=== PATIENT | male | born 1935 | race Caucasian/White ===

== ENCOUNTER 2020-01-01 11:33 | Emergency (ER) | payer MEDICARE, SELFPAY ==
--- NOTE | ~2020-01-01 | XR_ITS ---
XR hand RT min 3V DATE: 01/01/2020 12:57 INDICATION: Fall. Thumb pain. TECHNIQUE: 3 views COMPARISON: None FINDINGS: There is severe osteoarthritic change including severe joint space narrowing and spurring a t the first carpometacarpal joint. There is osteoarthritic change at the interphalangeal joints. No fracture, dislocation, periosteal reaction or bone destruction is detected. Arterial calcification s are noted. 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 IMPRESSION: Polyarticular osteoarthritis, particularly severe at the first carp al metacarpal joint No fracture or dislocation is detected
--- NOTE | ~2020-01-01 | CT_ITS ---
EXAMINATION: CT brain wo con DATE: 01/01/2020 12:54 INDICATION: Fall with head injury TECHNIQUE: Computed tomography (CT) of the head was performed without intravenous contrast. Sagittal and coronal reconstructions were performed. The mA was adjusted according to patient size. Iterative reconstruction technique was employed. The dose-length product was 605.33 mGy-cm. COMPARISON: head CT dated 08/07/2018 FINDINGS: No fracture. No acute intracranial hemorrhage, acute infarction or abnormal extra axial fluid collect ion. There is mild to moderate scattered white matter hypoattenuation consistent with chronic small v essel ischemic disease. Symmetric prominence of the sulci consistent with mild age-appropriate diffu se cerebral volume loss. Ventricles are normal and symmetric. No mass/mass effect. Symmetric dystrop hic calcifications at the bilateral basal ganglia. Intracranial calcified cerebral atherosclerosis is noted. 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 Changes of bilateral intraocular lens replacement. The orbits and mastoid air cells are normal. Layering low-attenuation fluid in the right maxillary sinus which can be seen with acute sinusitis. IMPRESSION: 1. No fracture or acute intracranial process. 2. Age-related changes including mild diffuse on loss and mild to moderate scattered white matter hyp oattenuation consistent with chronic small vessel ischemic disease. 3. Small amount of layering fluid in the right maxillary sinus. Correlate clinically for acute sinusi tis. Reviewed, dictated and finalized at location A. IMPRESSION: 1. No fracture or acute intracranial process. 2. Age-related changes including mild diffuse on loss and mild to moderate scat tered white matter hypoattenuation consistent with chronic small vessel ischemi c disease. 3. Small amount of layering fluid in the right maxillary sinus. Correlate clini earl for acute sinusitis.
--- NOTE | ~2020-01-01 | XR_ITS ---
XR elbow RT 2V DATE: 01/01/2020 12:57 INDICATION: Fall. Right elbow injury, pain TECHNIQUE: AP and lateral views COMPARISON: None FINDINGS: No fracture or dislocation or joint effusion. No periosteal reaction or bone destruction. J oint spaces are preserved. IMPRESSION: Negative Reviewed, dictated and finalized at location B. IMPRESSION: Negative
[2020-01-01 11:40] VITALS: BP 125/78; PULSE 81; RESP 18; TEMP 36.2; O2SAT 99
--- NOTE | 2020-01-01 12:34 | ED.FALL ---
HPI - Fall General Chief Complaint: Fall Stated Complaint: LACERATION Time Seen by Provider: 01/01/20 12:26 History of Present Illness HPI Narrative: Patient presents with his for falling in the garage today. He tripped and fell onto his right hand injuring his right thumb his right elbow and hit his face on the concrete with bleeding. He said he had no loss of consciousness. The pain is 6 out of 10 on the right thumb and 4 out of 10 on the right elbow. The right elbow pain increases with movement. He has an abrasion and a shallow laceration on his face bleeding is stopped. Both he and his forgot that he was on Coumadin when asked initially but then remembered because his INR was drawn today. He denies headache visual changes or weakness. MD complaint: fall Onset (ago): hour(s) Fall from: standing Fall witnessed: no Place fall occurred: home Loss of consciousness: none Prolonged down time: no Symptoms prior to fall: none Context: tripped/slipped Location of injury: head Location of injury - extremities: Right: elbow and hand Severity: moderate Related Data Home Medications Medication Instructions Recorded Confirmed acetaminophen 325 mg capsule 325 mg PO Q6H PRN 05/10/19 12/15/19 fexofenadine-pseudoephedrine ER 1 tablet PO DAILY 05/10/19 12/15/19 180 mg-240 mg tablet,ext.release 24 hr omega-3 fatty acids 1,000 mg 1,000 mg PO DAILY 05/10/19 12/15/19 capsule cyanocobalamin (vitamin B-12) 1,000 mcg PO DAILY 12/15/19 12/15/19 1,000 mcg capsule folic acid 1 mg tablet 1 mg PO DAILY 12/15/19 12/15/19 warfarin 4 mg tablet See Rx Instructions PO .COMPLEX 12/15/19 12/15/19 Allergies Allergy/AdvReac Type Severity Reaction Status Date / Time No Known Allergies Allergy Verified 01/01/20 12:06 Review of Systems Review of Systems: Narrative: CONSTITUTIONAL: Denies fever, chills, or sweats. EYES: Denies visual changes, redness, or discharge. ENT: Denies rhinorrhea, congestion, sore throat, or otalgia. CARDIOVASCULAR: Denies chest pain, palpitations, or edema. RESPIRATORY: Denies cough or dyspnea. GASTROINTESTINAL: Denies abdominal pain, nausea, vomiting, or diarrhea. GENITOURINARY: Denies dysuria or hematuria. SKIN: Denies rash or itching. MUSCULOSKELETAL: Denies back pain, but has right elbow and right thumb pain. NEUROLOGIC: Denies headache, numbness, or weakness. PSYCHIATRIC: Denies anxiety or depression. [facility] Past Medical History Medical History Chronic anticoagulation Chronic low back pain Social History Social History Smoking status: Former smoker Smoking end date: 06/28/79 Alcohol intake: never Gender identity (if verbalized by the patient): Male Exam Narrative: Exam Narrative: GENERAL: Well-appearing, well-nourished, and in no acute distress. Shallow laceration above the right eyebrow. Skin tear on the right cheek. Neither currently bleeding. HEAD: Normocephalic, atraumatic. EYES: PERRLA and EOMI. ENT: Nares clear, no rhinorrhea or epistaxis. Mucous membranes moist. NECK: Supple. CHEST: Clear to auscultation. No respiratory distress. HEART: Regular rate and rhythm. No murmur heard. Normal peripheral pulses. ABDOMEN: Soft, nontender, nondistended, normal active bowel sounds. EXTREMITIES: Swelling and tenderness in the right elbow and decreased range of motion. Swelling and tenderness on the thenar prominence of the right hand. SKIN: Warm, dry, no rash. NEURO: No focal deficits. Alert and oriented x3. PSYCH: Normal mood and affect. Very charming Const: General: no acute distress and alert Orientation/consciousness: patient oriented x3 Course Reevaluation(s) Reevaluation #1: Went in to check on the patient. He is resting comfortably. His face is still not bleeding. I told him that he has no fractures. He declines pain medication. He is ready to go. Date: 01/01/20 Time: 1
[2020-01-01] MEDS: TETANUS,DIPHTHERIA,AC PERTUSSIS ADULT (0.5 ML) BOOSTRIX IM (12:42)
[2020-01-01 14:17] VITALS: BP 122/86; PULSE 72; RESP 18; O2SAT 100
== END 2020-01-01 14:18 | disposition home or self-care (01) ==
PROVIDERS: Emergency Provider Emergency Medicine; PCP Internal Medicine
DX: S01.411A Laceration without foreign body of right cheek and temporomandibular area, initial encounter (principal); S01.111A Laceration without foreign body of right eyelid and periocular area, initial encounter; S59.901A Unspecified injury of right elbow, initial encounter; S69.91XA Unspecified injury of right wrist, hand and finger(s), initial encounter; Z23 Encounter for immunization; Z79.01 Long term (current) use of anticoagulants; W01.0XXA Fall on same level from slipping, tripping and stumbling without subsequent striking against object, initial encounter
CPT/HCPCS: 12013; 70450; 73070; 73130; 90471; 90715; 99284

== ENCOUNTER 2020-04-20 09:15 | Emergency (ER) | payer MEDICARE, SELFPAY ==
[2020-04-20 09:22] VITALS: BP 130/84; PULSE 97; RESP 16; TEMP 36.8; O2SAT 98
[2020-04-20] MEDS: LIDOCAINE HCL 1% LOCAL INJ 20 ML VIAL (11:30)
--- NOTE | 2020-04-20 11:31 | ED.GENADULT ---
HPI - General Adult General Chief complaint: Unspecified Stated complaint: GOT A HEMMROID, IT HAS THOMBOSED. Time Seen by Provider: 04/20/20 10:05 Source: patient and family Mode of arrival: ambulatory Limitations: no limitations History of Present Illness HPI narrative: Patient is a 84-year-old male who presents with several days duration of red tender swollen area in the perirectal region denies similar occurrence pain is constant worse with palpation denies fever chills nausea vomiting or immunocompromise presents per private vehicle has not taken anything for his symptoms has not been seen for this complaint Related Data Home Medications Medication Instructions Recorded Confirmed acetaminophen 325 mg capsule 325 mg PO Q6H PRN 05/10/19 04/05/20 fexofenadine-pseudoephedrine ER 1 tablet PO DAILY 05/10/19 04/05/20 180 mg-240 mg tablet,ext.release 24 hr omega-3 fatty acids 1,000 mg 1,000 mg PO DAILY 05/10/19 04/05/20 capsule cyanocobalamin (vitamin B-12) 1,000 mcg PO DAILY 12/15/19 04/05/20 1,000 mcg capsule folic acid 1 mg tablet 1 mg PO DAILY 12/15/19 04/05/20 warfarin 4 mg tablet See Rx Instructions PO .COMPLEX 12/15/19 04/05/20 Allergies Allergy/AdvReac Type Severity Reaction Status Date / Time No Known Allergies Allergy Verified 04/20/20 09:22 Review of Systems Review of Systems: All systems reviewed & are unremarkable except as noted in HPI and below PMFSH Past Medical History Medical History (Updated 04/20/20 @ 11:58 by Jd Kline PA-C) Chronic anticoagulation Chronic low back pain Family History Family History Father Carcinoma of colon Acute myocardial infarction Mother Family history of malignant neoplasm of breast in first degree relative Social History Social History Smoking status: Former smoker Smoking end date: 06/28/79 Alcohol intake: never Gender identity (if verbalized by the patient): Male Exam Narrative: Exam Narrative: GENERAL: Well-appearing, well-nourished, and in no acute distress. HEAD: Normocephalic, atraumatic. EYES: PERRLA and EOMI. ENT: Nares clear, no rhinorrhea or epistaxis. Mucous membranes moist. CHEST: Clear to auscultation. No respiratory distress. No wheezes rales or rhonchi HEART: Regular rate and rhythm. No murmur heard. Normal peripheral pulses. ABDOMEN: Soft, nontender, nondistended EXTREMITIES: Normal range of motion. No edema. SKIN: Warm, dry, no rash. 2 cm red tender swollen area in between the scrotum and anoderm does not involve the scrotum or the anoderm. Lesion is fluctuant NEURO: No focal deficits. Alert and oriented x3. PSYCH: Normal mood and affect. Course Course Emergency Course: Patient in the room at this time had I&D of the abscess resting comfortably aware of case findings treatment plan diagnosis agreeing to follow with primary care on Wednesday for reevaluation Consultations Consultation #1: Discussed case with primary care on-call who recommends that the patient can follow in clinic Date: 04/20/20 Time: 11:56 Vital Signs Vital signs: Vital Signs Temperature 98.2 F 04/20/20 09:22 Pulse Rate 97 04/20/20 09:22 Respiratory Rate 16 04/20/20 09:22 Blood Pressure 130/84 04/20/20 09:22 Pulse Oximetry 98 04/20/20 09:22 Temperature 98.2 F 04/20/20 09:22 Pulse Rate 97 04/20/20 09:22 Respiratory Rate 16 04/20/20 09:22 Blood Pressure 130/84 04/20/20 09:22 Pulse Oximetry 98 04/20/20 09:22 Procedures Abscess I/D mega-rectal: Date of Incision: 04/20/20 Time of Incision: 11:57 Local Anesthetic: lidocaine 1% Technique: incised with #11 blade Irrigation: No Packing used?: iodoform I&D Results: Pus Complications: pain Medical Decision Making MDM Narrative Medical decision making narrative: Patient w
[2020-04-20 11:57] VITALS: BP 136/84; PULSE 90; RESP 16; O2SAT 98
[2020-04-20 12:06] LABS: INR 2.6; Prothrombin Time 27.7 Seconds (11.1-14.7)
[2020-04-20 12:24] VITALS: BP 125/73; PULSE 72; RESP 18; TEMP 36.5; O2SAT 97
== END 2020-04-20 12:27 | disposition home or self-care (01) ==
PROVIDERS: Emergency Medicine Emergency Medical Services; Emergency Provider Emergency Medicine; PCP Internal Medicine
DX: K61.1 Rectal abscess (principal); Z79.01 Long term (current) use of anticoagulants; Z87.891 Personal history of nicotine dependence
CPT/HCPCS: 36415; 46040; 85610; 99283

== ENCOUNTER → 2020-05-09 10:52 | Outpatient (CLI) | payer MEDICARE, SELFPAY ==
--- NOTE | ~2020-05-09 | XR_ITS ---
EXAMINATION: XR lumbar spine 2-3V DATE: 05/09/2020 11:15 INDICATION: Lumbar spinal stenosis. TECHNIQUE: 3 views of lumbar spine were obtained. COMPARISON: CT abdomen and pelvis 09/16/2013 FINDINGS: There is 27 degrees dextroscoliosis of lumbar spine. There is chronic degenerative height l oss of L3 vertebral body on the left. There is mildly decreased disc height at L1-L2 and severely dec reased disc height from L2-L3 through L5-S1. IMPRESSION: 1. Severe lumbar spondylosis, stable from 09/16/2013. 2. Lumbar dextroscoliosis. Reviewed, dictated and finalized at location B. ONAL OFFICE COORDINATOR
--- NOTE | ~2020-05-09 | XR_ITS ---
EXAMINATION: XR thoracic spine 3V EXAM DATE: 05/09/2020 11:15 INDICATION: M54.9 - Dorsalgia, unspecified. TECHNIQUE: Frontal and lateral projections of the thoracic spine as well as lateral swimmers projecti on of the upper thoracic spine for interpretation. Comparison is made to prior examination from 2012. FINDINGS: Mild to moderate lower thoracic levoscoliosis. Mild to moderate sized right lateral bridgi ng endplate osteophytes. Mild to moderate mid and lower thoracic disc disease. No endplate erosive ch maria c. Paraspinal soft tissue is unremarkable. Compared to prior examination, progression in scoliosis and spondylosis. IMPRESSION: 1. Mild to moderate thoracic scoliosis, spondylosis. Reviewed, dictated and finalized at location A. OAT CAPTAIN
== END ==
PROVIDERS: PCP Internal Medicine; Visit Provider Internal Medicine
DX: M48.061 Spinal stenosis, lumbar region without neurogenic claudication (principal); M41.9 Scoliosis, unspecified; M47.894 Other spondylosis, thoracic region; M47.896 Other spondylosis, lumbar region
CPT/HCPCS: 72072; 72100

== ENCOUNTER 2020-10-17 11:20 | Inpatient (IN) | payer MEDICARE, SELFPAY ==
[2020-10-17] VITALS (17 sets, daily range): BP systolic 158–179; BP diastolic 89–109; PULSE 85–106; RESP 12–26; TEMP 35.9; O2SAT 97–100
--- NOTE | ~2020-10-17 | XR_ITS ---
EXAMINATION: XR chest 1V portable DATE: 10/17/2020 12:20 INDICATION: Unresponsive. TECHNIQUE: A single frontal view of the chest was obtained. COMPARISON: Chest single view 11/01/2017, chest CT 10/30/2016 FINDINGS: There are mild airspace opacities in right lower lung zone and left mid and lower lung zone s. Calcified right lung nodules and calcified right hilar and mediastinal lymph nodes are consistent with old granulomatous disease. No pleural effusion or pneumothorax. The heart size is normal. IMPRESSION: 1. Mild airspace opacities in right lower lung zone and left mid and lower lung zones, consistent wit h atelectasis versus pneumonia. Reviewed, dictated and finalized at location B. IMPRESSION: 1. Mild airspace opacities in right lower lung zone and left mid and lower lung zones, consistent with atelectasis versus pneumonia.
--- NOTE | ~2020-10-17 | CT_ITS ---
EXAMINATION: CT brain wo con DATE: 10/17/2020 11:50 INDICATION: Unresponsive. TECHNIQUE: Computed tomography (CT) of the head was performed without intravenous contrast. Sagittal and coronal reconstructions were performed. Automated exposure control and iterative reconstruction t echnique were employed. The dose-length product was 681.00 mGy-cm. COMPARISON: head CT dated 01/01/2020 FINDINGS: Large left frontal intraparenchymal hematoma measuring 6.0 x 5.8 x 3.8 cm with surrounding vasogenic edema. There is intraventricular extension of hemorrhage into both the left and right lateral ventric les, the third and fourth ventricles with small amount of blood extending through the bilateral joanna britton of [place]. The ventricles are mildly enlarged relative to the prior study suggesting secondary e ntrapment with mild hydrocephalus. There is subfalcine herniation with 12 mm left right midline shift at the level of the anterior interventricular septum. No underlying mass identified. There is modera te scattered white matter hypoattenuation consistent with chronic small vessel ischemic disease. No acute intracranial ischemic infarction or other abnormal extra axial fluid collection. 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 Changes of bi lateral intraocular lens replacement. The orbits and mastoid air cells are normal. Small mucous reten tion cyst in the right maxillary sinus. Intracranial calcified cerebral atherosclerosis is noted. IMPRESSION: 1. Large left frontal intraparenchymal hemorrhage with intraventricular extension and secondary entra pment with mild hydrocephalus. There is also subfalcine herniation with 12 mm left to right midline s hift. Recommend emergent neurosurgical consultation. Dr. Johnston discussed these findings with Dr. Moncho anand at 11:48 AM. Reviewed, dictated and finalized at location A. IMPRESSION: 1. Large left frontal intraparenchymal hemorrhage with intraventricular extensi on and secondary entrapment with mild hydrocephalus. There is also subfalcine h erniation with 12 mm left to right midline shift. Recommend emergent neurosurgi dahlia consultation. Dr. Johnston discussed these findings with Dr. Best at 11:48 AM.
--- NOTE | ~2020-10-17 | CT_ITS ---
EXAMINATION: CT cervical spine wo con DATE: 10/17/2020 11:50 INDICATION: Neck injury. TECHNIQUE: Computed tomography (CT) of the cervical spine was performed without intravenous contrast. Automated exposure control and iterative reconstruction technique were employed. The dose-length pro duct was 411.16 mGy-cm. COMPARISON: CT cervical spine 08/07/2018 FINDINGS: There is acute hematoma in the lateral and fourth ventricles. There is 21 degrees dextrosco liosis of cervical spine. There is 2 mm anterolisthesis of C4 on C5. There is mild kyphosis of mid ce rvical spine. Vertebral body heights are normal. There is mildly decreased disc height at C4-C5 and s everely decreased disc height at C5-C6, C6-C7, and C7-T1. The following disc levels are specifically discussed: C2-C3: There is severe left uncovertebral joint osteoarthritis. There is moderate right and severe le ft facet joint osteoarthritis. There is mild left neural foraminal stenosis. There is no central charleen l stenosis. C3-C4: There is ankylosis of left uncovertebral joint with mild hypertrophy. There is ankylosis of th e facet joints with severe left hypertrophy. There is moderate left neural foraminal stenosis. There is no central canal stenosis. C4-C5: There is ankylosis of the uncovertebral joints with mild left hypertrophy. There is ankylosis of the facet joints with severe left hypertrophy. There is mild left neural foraminal stenosis. There is mild central canal stenosis. C5-C6: There is severe bilateral uncovertebral joint osteoarthritis. There is mild right and severe l eft facet joint osteoarthritis. There is moderate bilateral neural foraminal stenosis. There is mild central canal stenosis. C6-C7: There is severe bilateral uncovertebral joint osteoarthritis. There is severe bilateral facet joint osteoarthritis. There is moderate right and mild left neural foraminal stenosis. There is mild central canal stenosis. C7-T1: There is severe bilateral uncovertebral joint osteoarthritis. There is severe bilateral facet joint osteoarthritis. There is mild bilateral neural foraminal stenosis. There is no central canal st enosis. IMPRESSION: 1. No fracture. 2. Severe cervical spondylosis. 3. Cervical dextroscoliosis. 4. Partially visualized acute intraventricular hematoma in the brain. Reviewed, dictated and finalized at location B.
--- NOTE | 2020-10-17 11:31 | PC.NURSE ---
Dr. Best spoke with pt's . Pt is DNR/DNI.
[2020-10-17 11:33] LABS: Glucose Point of Care 157 (65-105)
--- NOTE | 2020-10-17 11:35 | ECG_ITS ---
Measurements Intervals [place] Rate: 95 P: NE: 0 QRS: 18 QRSD: 94 T: -8 QT: 372 QTc: 469 Interpretive Statements ATRIAL FIBRILLATION EARLY PRECORDIAL R/S TRANSITION NONSPECIFIC ST & T-WAVE ABNORMALITY- DIFFUSE LEADS BASELINE WANDER- V1-V2 ABNORMAL ECG Electronically Signed On 10-17-2020 12:51:53 CDT by Wilton Chamberlain D.O.
--- NOTE | 2020-10-17 11:37 | ED.AMS ---
HPI - Altered Mental Status General Chief Complaint: Altered Mental Status Stated Complaint: UNRESPONSIVE Time Seen by Provider: 10/17/20 11:27 Source: family, EMS and RN notes reviewed Mode of arrival: EMS Limitations: altered mental status and clinical condition History of Present Illness HPI narrative: Patient is 85 years old white male brought to the emergency room from home by ambulance with unresponsiveness. Patient is got up from her sleep at 10:30 AM, found her sitting on the couch with a lot of vomitus on his close and unresponsive. He was in the sitting position tilting slightly to one side. Last time was seen okay last night. Unknown trauma. Patient is DNR, discussed with and his son. complaint: altered mental status Related Data Home Medications Medication Instructions Recorded Confirmed acetaminophen 325 mg capsule 325 mg PO Q6H PRN 05/10/19 10/10/20 fexofenadine-pseudoephedrine ER 1 tablet PO DAILY 05/10/19 10/10/20 180 mg-240 mg tablet,ext.release 24 hr omega-3 fatty acids 1,000 mg 1,000 mg PO DAILY 05/10/19 10/10/20 capsule cyanocobalamin (vitamin B-12) 1,000 mcg PO DAILY 12/15/19 10/10/20 1,000 mcg capsule folic acid 1 mg tablet 1 mg PO DAILY 12/15/19 10/10/20 warfarin 4 mg tablet See Rx Instructions PO .COMPLEX 12/15/19 10/10/20 Allergies Allergy/AdvReac Type Severity Reaction Status Date / Time No Known Allergies Allergy Verified 10/10/20 13:59 Review of Systems Review of Systems: ROS unobtainable: Yes unobtainable due to medical condition [facility] Past Medical History Medical History (Updated 10/17/20 @ 13:33 by Keena Best MD) Chronic anticoagulation Chronic low back pain Family History Family History Father Carcinoma of colon Acute myocardial infarction Mother Family history of malignant neoplasm of breast in first degree relative Social History Social History Years smoked: 7 Smoking status: Former smoker Tobacco type: cigarettes, pipe and cigars Second hand tobacco smoke exposure: No Smoking end date: 01/01/75 Alcohol intake: never Gender identity (if verbalized by the patient): Male Exam Narrative: Exam Narrative: General appearance: Well-developed, well-nourished, unresponsive to painful stimulation, snoring, oral breathing Skin: Normal color, cold to touch Head: Normocephalic, nontraumatic Eyes: Clear conjunctiva ENT: Oropharynx normal, ears normal, nose normal Neck: Supple, nontender Chest and respiratory: Hyperventilating, good air entry bilaterally, scattered rhonchi Heart: Regular rate/rhythm Abdomen: Soft, nontender, no organomegaly, quiet bowel sounds Vascular: Normal peripheral pulses, normal capillary refill. Neurologic: Unresponsive to painful stimulation Course Course Emergency Course: Critical Consultations Consultation #1: Dr. Cardona, stroke doctor at [facility]. Accepted to transfer patient to his facility, After long phone conversation with the patient's son, the decision was to keep patient in our hospital, comfort measures only. The patient's and his son recommended the above plan. Date: 10/17/20 Time: 13:35 Vital Signs Vital signs: Vital Signs Pulse Rate 95 10/17/20 11:24 Respiratory Rate 26 H 10/17/20 11:24 Pulse Oximetry 98 10/17/20 11:24 Temperature 35.9 C L 10/17/20 11:30 Pulse Rate 91 10/17/20 12:17 Respiratory Rate 19 10/17/20 12:17 Blood Pressure 179/89 H 10/17/20 12:17 Pulse Oximetry 100 10/17/20 12:17 MDM - Altered Mental Status MDM Narrativ
[2020-10-17 11:43] LABS: Alveolar/Arterial O2 Gradient 154.9 mmHg; Base Excess ABG -1.5 mEq/l (+/-2.0); Fractional Inspired Oxygen 50 %; HCO3 ABG 25.6 mEq/l (22.0-26.0); Oxygen Content ABG 18.8 %vol (16.0-22.0); Oxygen Saturation ABG 98.6 % (95.0-100.0); Oxyhemoglobin 97.1 % THb (90.0-100.0); PCO2 ABG 52.7 mmHg (35.0-45.0); PO2 ABG 142.3 mmHg (80.0-100.0); PO2 FiO2 Ratio Arterial Blood 2.85 %; Total Hemoglobin 13.6 g/dL (12.0-18.0); pH ABG 7.304 (7.350-7.450)
[2020-10-17 11:44] LABS: Device VENTURI MASK; Modified Allen's Test Pass; Site Drawn RIGHT RADIAL
[2020-10-17 12:02] LABS: Basophils Absolute Auto 0.1 K/mm3 (0.0-0.1); Basophils Percent Auto 0.6 % (0.2-1.2); Eosinophils Absolute Auto 0.1 K/mm3 (0-0.3); Eosinophils Percent Auto 0.9 % (0-4.4); Hematocrit 40.5 % (42.0-52.0); Hemoglobin 13.4 g/dL (14.0-18.0); Immature Granulocyte Absolute 0.04 K/mm3 (0.00-0.031); Immature Granulocyte Percent A 0.3 % (0-0.5); Lymphocytes Absolute Auto 2.35 K/mm3 (0.9-3.2); Lymphocytes Percent Auto 18.3 % (18.3-44.2); Mean Corpuscular HGB Conc 33.1 g/dl (32-36); Mean Corpuscular Hemoglobin 30.9 pg (26-34); Mean Corpuscular Volume 93.3 fl (80-100); Mean Platelet Volume 9.9 fl (7.4-10.4); Monocytes Absolute Auto 0.9 K/mm3 (0.1-0.6); Neutrophils Absolute Auto 9.3 K/mm3 (1.3-6.7); Neutrophils Percent Auto 72.9 % (45.5-73.1); Platelet Count Result 182 k/mm3 (150-375); Red Blood Count 4.34 M/mm3 (4.6-6.20); Red Cell Distribution Width 12.3 % (11.5-14.5); White Blood Count 12.8 K/mm3 (4.5-10.0)
[2020-10-17 12:06] LABS: Add Urine Microscopic? YES; Appearance Urine Clear (Clear); Bilirubin Urine Negative (Negative); Blood Urine Negative (Negative); Color Urine Straw (Yellow); Glucose Urine UA 2+ mg/dL (Negative); Ketones Urine Trace mg/dL (Negative); Leukocyte Esterase Ur Negative LEU/UL (Negative); Mucus Urine Rare /lpf; Nitrate Urine Negative (Negative); Protein Urine 1+ mg/dL (Negative); Specific Grav Ur 1.012 (1.001-1.035); Squamous Epithelial Cell Urine Rare /hpf (Few); Urobilinogen Urine Negative mg/dL (<2.0); WBC Urine 0-3 /hpf
[2020-10-17 12:12] LABS: INR 2.9; Partial Thromboplastin Time 38.7 SECONDS (22.3-36.8); Prothrombin Time 30.5 Seconds (11.1-14.7)
[2020-10-17 12:15] LABS: Alanine Aminotransferase 18 U/L (4-50); Albumin Level 4.6 g/dL (3.5-5.1); Alkaline Phosphatase 93 U/L (38-126); Anion Gap 8 mmol/L (8-16); Aspartate Amino Transferase 35 U/L (17-59); Bilirubin,Total 1.7 mg/dL (0.2-1.3); Blood Urea Nitrogen 23 mg/dL (9-20); Carbon Dioxide 27 mmol/L (22-30); Chloride 104 mmol/L (98-107); Creatine Kinase 62 U/L (55-170); Estimated Glomerular Filt Rate > 60; Glucose 170 mg/dL (75-110); Potassium 3.9 mmol/L (3.4-5.0); Sodium 139 mmol/L (137-145)
[2020-10-17 12:16] LABS: Lactic Acid Reflex 1.3 mmol/L (0.7-2.1)
[2020-10-17] MEDS: SODIUM CHLORIDE 0.9% IV 1,000 ML 150 ML IV CONT (12:16)
[2020-10-17 12:18] LABS: Amphetamine Screen Urine Negative (Negative); Barbiturate Screen Urine Negative (Negative); Benzodiazepines Screen Urine Negative (Negative); Cannabinoid Screen Urine Negative (Negative); Cocaine Screen Urine Negative (Negative); Methadone Screen Urine Negative (Negative); Opiate Screen Urine Negative (Negative); Phencyclidine Screen Urine Negative (Negative)
[2020-10-17 12:27] LABS: Troponin I < 0.012 ng/mL (0.000-0.034)
--- NOTE | 2020-10-17 12:36 | PC.NURSE ---
No blood cultures needed per verbal orders from Dr. Best.
[2020-10-17] MEDS: ONDANSETRON INJ 4 MG/2 ML VIAL 8 MG IV PUSH (13:07)
[2020-10-17 13:20] LABS: Ethanol < 10 mg/dL (<10)
--- NOTE | 2020-10-17 15:05 | ADMGEN ---
This patient, Toby Wu, was admitted to Medical Room 257-01. Patient/family oriented to hospital policies and general routines including ID bracelet, bed and alarms, visiting hours, pain management, procedures, bathroom and other care routines, personal items, smoking policy, room service/diet, and visiting hours. Information on how to activate the Rapid Response Team has been discussed. Patient/Family are encouraged to report perceived risks to care and to ask questions if they do not understand what they are told or what they should do.
--- NOTE | 2020-10-17 16:03 | PM.IMHP ---
H&P: HPI History of Present Illness Date/Time: 10/17/20 16:03 this is an 85 year old Male patient who has a history of atrial fibrillation and is on Coumadin. The patient has had multiple falls in the past. However was believed that the patient did not fall today. The patient was brought into the emergency room by ambulance because of unresponsiveness. The patient got up from her sleep at 10:30 a.m. and found her sitting on the couch with vomit all over his face and his sugar. The patient was unresponsive. The stated that the patient may have said no to her 1 time. It appears that the patient was up and ate breakfast this morning but then vomited afterwards. The patient was slightly drifting to the right side. The noticed to that he was not moving his right arm right leg. She did notice that he was moving his left arm. The son is at the bedside and the is at the bedside as well. The Yoselin stated that the patient is a DNR. Airspace opacities and right lower lung zones and left mid and lower lung zones consistent with pneumonia. CT of the cervical spine was read as No fracture. Severe cervical spondylosis. Severe dextroscoliosis. Partial visualization acute intraventricular hematoma in the brain. Brain CT was read as large left frontal intraparenchymal hemorrhage with intraventricular extension is secondary trapped met with mild hydrocephalus. Also subfalcine herniation with 12 mm left to right midline shift. Recommend emergent neurosurgeon consult. ER provider had a long discussion with the family and they had decided to make the patient comfortable and make him a DNR. The patient was not transferred out of this facility and chose to make him comfortable instead. The patient was given mannitol in the emergency room. The patient is being admitted to in patient services on the date of service of 10/17/2020. Chief Complaint: Unresponsiveness Review of Systems Review of Systems: ROS unobtainable: Yes unobtainable due to mental status [facility] Past Medical History Medical History (Updated 10/17/20 @ 16:09 by Arielle Call NP) Atrial fibrillation Chronic anticoagulation Chronic low back pain Surgical History Surgical History (Updated 10/17/20 @ 16:09 by Arielle Call NP) H/O arthroscopic knee surgery H/O foot surgery On the right History of total knee arthroplasty Hx of cataract extraction Family History Family History Father Carcinoma of colon Acute myocardial infarction Mother Family history of malignant neoplasm of breast in first degree relative Social History Social History (Updated 10/17/20 @ 16:10 by Arielle Call NP) Social History: The patient used to smoke a cigar and pipe. The patient is retired from being an executive coordinator. He is to Yoselin and has 2 sons. The patient is a DNR. No alcohol or illicit drugs. Oseas his son is in the room with him. The is the power of ip attorney. Years smoked: 7 Smoking status: Never smoker Tobacco type: cigarettes, pipe and cigars Second hand tobacco smoke exposure: No Smoking end date: 06/28/74 Alcohol intake: former Substance use: never Substance use type: does not use Gender identity (if verbalized by the patient): Male Sexual Orientation (if Verbalized by the Patient): Straight or Heterosexual Spiritual care concerns: Yes (comfort measures) Meds Home Medications and Allergies Home Medications Medication Instructions Recorded Confirmed Type acetaminophen 325 mg capsule 325 mg PO Q6H PRN 05/10/19 10/10/20 History fexofenadine-pseudoephedrine ER 1 tablet PO DAILY 05/10/19 10/10/20 History 180 mg-240 mg tablet,ext.release 24 hr multivitamin 1 tablet PO DAILY #30 tablet 05/10/19 10/10/20 Rx omega-3 fatty acids 1,000 mg 1,000 mg PO DAILY 05/10/19 10/10/20 History capsule cyanocobalamin (vitamin B-12) 1,00
[2020-10-18] MEDS: SODIUM CHLORIDE 0.9% IV 1,000 ML 100 ML IV CONT ×3 (00:59→21:03)
[2020-10-18 05:40] LABS: Basophils Percent Auto 0.1 % (0.2-1.2); Hemoglobin 12.8 g/dL (14.0-18.0); Immature Granulocyte Absolute 0.07 K/mm3 (0.00-0.031); Immature Granulocyte Percent A 0.5 % (0-0.5); Lymphocytes Absolute Auto 1.45 K/mm3 (0.9-3.2); Lymphocytes Percent Auto 9.9 % (18.3-44.2); Mean Corpuscular HGB Conc 32.8 g/dl (32-36); Mean Corpuscular Hemoglobin 30.8 pg (26-34); Mean Corpuscular Volume 93.8 fl (80-100); Mean Platelet Volume 10.1 fl (7.4-10.4); Monocytes Absolute Auto 1.2 K/mm3 (0.1-0.6); Monocytes Percent Auto 8.3 % (2.6-8.5); Neutrophils Percent Auto 81.2 % (45.5-73.1); Platelet Count Result 193 k/mm3 (150-375); Red Blood Count 4.16 M/mm3 (4.6-6.20); Red Cell Distribution Width 12.8 % (11.5-14.5); White Blood Count 14.7 K/mm3 (4.5-10.0)
[2020-10-18 05:55] LABS: INR 1.6; Prothrombin Time 19.8 Seconds (11.1-14.7)
[2020-10-18 05:58] LABS: Anion Gap 10 mmol/L (8-16); Blood Urea Nitrogen 18 mg/dL (9-20); Calcium 8.7 mg/dL (8.4-10.2); Carbon Dioxide 25 mmol/L (22-30); Chloride 107 mmol/L (98-107); Estimated Glomerular Filt Rate > 60; Glucose 152 mg/dL (75-110); Magnesium 1.9 mg/dL (1.6-2.3); Potassium 4.1 mmol/L (3.4-5.0); Sodium 142 mmol/L (137-145)
[2020-10-18 06:05] VITALS: BP 153/83; PULSE 99; RESP 20; TEMP 36; O2SAT 100
[2020-10-18] MEDS: MORPHINE SULFATE (*CRX) 2 MG/ML INJ IV PUSH ×2 (06:51→14:11)
[2020-10-18 08:00] VITALS: BP 152/82; PULSE 50; RESP 18; TEMP 36.4; O2SAT 99
--- NOTE | 2020-10-18 10:37 | PM.IMPN ---
Progress Note: A&P Assessment and Plan (1) Intraparenchymal hemorrhage of brain: Code(s): I61.9 - Nontraumatic intracerebral hemorrhage, unspecified <Jennifer Martines PA-C - Last Filed: 10/18/20 11:28> Status: Acute <Jennifer Martines PA-C - Last Filed: 10/18/20 11:28> Assessment and Plan: Patient's last known well around 2200 10/16 per . She woke up around 1030 10/17 and found him on the couch, unresponsive covered in vomit. Family unaware of any injury or fall recently however he dose have a history of falls in the past. CT brain showed large left frontal intraparenchymal hemorrhage with intraventricular extension and secondary entrapment with mild hydrocephalus. There is also subfalcine herniation with 12 mm left to right midline shift. ED provider spoke with stroke team at [facility] and patient was accepted to transfer however after conversations with family, decision was made to keep him at our facility and admit for comfort measures only. He is NPO due to unresponsiveness. Detailed discussion held this morning with family members at bedside regarding patient's current condition and goals for further plan of care. Patient's son requests finishing last dose of mannitol today and repeating head CT tomorrow. I explained that I do not feel a repeat head CT will affect patient's outcome and may not be of much benefit but willing to proceed if it helps family make further decisions on plan of care. Family inquired about parenteral nutrition, discussed it is not felt to be indicated today. Family agreeable to hospice informational meeting, care coordination aware. <Jennifer Martines PA-C - Last Filed: 10/18/20 11:28> (2) Atrial fibrillation: Code(s): I48.91 - Unspecified atrial fibrillation <Jennifer Martines PA-C - Last Filed: 10/18/20 11:28> Status: Chronic <Jennifer Martines PA-C - Last Filed: 10/18/20 11:28> Assessment and Plan: Patient has history of atrial fibrillation on long-term anticoagulation with warfarin. Reversal with Kcentra was given by ED provider. <Jennifer Martines PA-C - Last Filed: 10/18/20 11:28> (3) Aspiration pneumonia: Qualifiers: Aspiration pneumonia type: unspecified Laterality: right Lung location: lower lobe of lung Qualified Code(s): J69.0 - Pneumonitis due to inhalation of food and vomit <Jennifer Martines PA-C - Last Filed: 10/18/20 11:28> Code(s): J69.0 - Pneumonitis due to inhalation of food and vomit <Jennifer Martines PA-C - Last Filed: 10/18/20 11:28> Status: Acute <Jennifer Martines PA-C - Last Filed: 10/18/20 11:28> Assessment and Plan: Suspicion for aspiration pneumonia given exam, history of unwitnessed vomiting, chest XR. Family opted for comfort measures only. <Jennifer Martines PA-C - Last Filed: 10/18/20 11:28> (4) Chronic anticoagulation: Code(s): Z79.01 - senior living (current) use of anticoagulants <Jennifer Martines PA-C - Last Filed: 10/18/20 11:28> Status: Acute <Jennifer Martines PA-C - Last Filed: 10/18/20 11:28> Assessment and Plan: Patient's Coumadin was reversed in ED. <Jennifer Martines PA-C - Last Filed: 10/18/20 11:28> (5) Benign essential hypertension: Code(s): I10 - Essential (primary) hypertension <Jennifer Martines PA-C - Last Filed: 10/18/20 11:28> Status: Acute <Jennifer Martines PA-C - Last Filed: 10/18/20 11:28> Assessment and Plan: BPs reasonable. Continue to monitor. PRN hydralazine available. <Jennifer Martines PA-C - Last Filed: 10/18/20 11:28> (6) Mixed hyperlipidemia: Code(s): E78.2 - Mixed hyperlipidemia <Jennifer
[2020-10-18 12:00] VITALS: BP 145/75; PULSE 80; RESP 18; TEMP 36.5; O2SAT 98
[2020-10-18 16:00] VITALS: BP 105/47; PULSE 75; RESP 20; TEMP 36.3; O2SAT 100
[2020-10-18 19:58] VITALS: O2SAT 100
[2020-10-18 21:30] VITALS: BP 144/79; PULSE 83; RESP 18; TEMP 35.9; O2SAT 100
[2020-10-19 02:28] VITALS: BP 150/88; PULSE 89; RESP 18; TEMP 36.3; O2SAT 96
[2020-10-19 06:53] VITALS: BP 157/91; PULSE 88; RESP 22; TEMP 36.3; O2SAT 99
[2020-10-19] MEDS: SODIUM CHLORIDE 0.9% IV 1,000 ML 100 ML IV CONT (06:53)
[2020-10-19] MEDS: MORPHINE SULFATE (*CRX) 2 MG/ML INJ IV PUSH ×2 (07:01→12:56)
[2020-10-19 08:40] VITALS: O2SAT 95
--- NOTE | 2020-10-19 11:20 | PM.DS ---
DS: Admitting Diagnosis Admitting Diagnosis Admitting Diagnosis: Intraparenchymal hemorrhage DS: Discharge Diagnosis Discharge Diagnosis (1) Intraparenchymal hemorrhage of brain: Code(s): I61.9 - Nontraumatic intracerebral hemorrhage, unspecified Status: Acute Assessment and Plan: Date of Admission 10/17/20 Date of Discharge 10/19/20 Mr. Wu is an 85yo M Of atrial fibrillation on long-term anticoagulation with warfarin, hypertension, dyslipidemia who presented to the ED for evaluation of unresponsiveness. Patient's last known well was around 2200 10/16/20. The patient's woke up around 1030 10/17/20 and found the patient on the couch, unresponsive covered in vomit. Family was unaware of any injury or fall recently. CT brain on arrival demonstrated large left frontal intraparenchymal hemorrhage with intraventricular extension and secondary entrapment with mild hydrocephalus, subfalcine herniation with 12 mm [id number] midline shift. The ED provider spoke with the stroke team at [facility] and patient was accepted for transfer however after conversations with family, the decision was made to keep patient at our facility and admit him for comfort measures only. He was started on mannitol by the ED provider. Patient remained unresponsive, would move his extremities some spontaneously but has not had his eyes open or responded verbally since arrival. Multiple detailed discussions were held with patient's family regarding goals of care and hospice services were offered. Patient is discharged home with [facility] hospice 10/19/20. (2) Atrial fibrillation: Code(s): I48.91 - Unspecified atrial fibrillation Status: Chronic Assessment and Plan: Patient has history of atrial fibrillation on long-term anticoagulation with warfarin. Reversal with Kcentra was given by ED provider. (3) Aspiration pneumonia: Qualifiers: Aspiration pneumonia type: unspecified Laterality: right Lung location: lower lobe of lung Qualified Code(s): J69.0 - Pneumonitis due to inhalation of food and vomit Code(s): J69.0 - Pneumonitis due to inhalation of food and vomit Status: Acute Assessment and Plan: Suspicion for aspiration pneumonia given exam, history of unwitnessed vomiting, chest XR. Family opted for comfort measures only. (4) Chronic anticoagulation: Code(s): Z79.01 - [employer] (current) use of anticoagulants Status: Acute Assessment and Plan: Patient's Coumadin was reversed in ED. (5) Benign essential hypertension: Code(s): I10 - Essential (primary) hypertension Status: Acute Assessment and Plan: BPs reasonable. Continue to monitor. PRN hydralazine available. (6) Mixed hyperlipidemia: Code(s): E78.2 - Mixed hyperlipidemia Status: Acute Assessment and Plan: NPO, no home medications are given. DS: Summary Hospital Course Hospital Course: See above Time Spent with Patient Time attestation: Total time spent providing and/or coordinating discharge services: 40 minutes Exam Narrative: Exam Narrative: General: Elderly male resting supine in bed in no acute distress. HEENT: Normocephalic, oral mucosa tacky. Cardiovascular: Rhythm irregular, rate is irregular but controlled. Respiratory: Diffuse rhonchi to left [place] anteriorly. Respirations are sporadic, non-labored. On supplemental oxygen. Abdomen: Soft, non-tender, non-distended, bowel sounds present. Extremities: Peripheral pulses intact. No edema. Neuro: Unresponsive and unable to follow simple commands. DS: Data Imaging Radiologist's impression: Last Vital Signs Temp 97.8 F 10/19/20 12:00 Pulse 83 04/2
[2020-10-19 12:00] VITALS: BP 174/87; PULSE 83; RESP 18; TEMP 36.6; O2SAT 99
== END 2020-10-19 13:35 | disposition hospice, home (50) | DRG 64 ==
LOC: ANHED 13:33 → ANH2MED 10-18 07:25
PROVIDERS: Nurse Practitioner; Admitting Provider Family Medicine; Emergency Provider Emergency Medicine; PCP Internal Medicine; Visit Provider Physician Assistant
DX: I61.9 Nontraumatic intracerebral hemorrhage, unspecified (principal); J69.0 Pneumonitis due to inhalation of food and vomit; I48.91 Unspecified atrial fibrillation; I10 Essential (primary) hypertension; E78.2 Mixed hyperlipidemia; M54.5 Low back pain; G89.29 Other chronic pain; Z66 Do not resuscitate; Z79.01 Long term (current) use of anticoagulants; Z79.899 Other long term (current) drug therapy; Z87.891 Personal history of nicotine dependence
CPT/HCPCS: 36415; 36600; 70450; 71045; 72125; 80048; 80053; 80307; 81001; 82550; 82805; 82948; 83605; 83735; 84484; 85025; 85610; 85730; 93005; 96365; 96375; 99291; C9132; J2270; J2405; J7030